=== PATIENT | female | born 1965 | race Caucasian/White ===

== ENCOUNTER → 2022-07-09 | Day surgery (SDC) | payer MEDICARE, MEDICAID ==
[~2022-07-09] VITALS: Ht 162.6 cm; Wt 52.6 kg
[~2022-07-09] MED LIST: ACET-2708 PO; BUPIVACAINE HCL 0.5% (5MG/ML) 50ML ONE; DEXAMETHASONE 4MG/ML 1ML VIAL ONE; FENTANYL CITRATE/PF 50MCG/ML 2ML VIAL ONE; GLYCOPYRROLATE 0.2 MG/ML 2ML VIAL ONE; HYDRALAZINE 20MG/ML VIAL IV NR; HYDROMORPHONE HCL/PF 2MG/ML CPJ IV PRN; KETOROLAC 30MG/ML VIAL ONE; MEPERIDINE HCL/PF 25MG/ML CPJ IV PRN; METF-414 PO; METOCLOPRAMIDE HCL 10MG/2ML VIAL ONE; MIDAZOLAM HCL 2 MG/2 ML VIAL ONE; NEOSTIGMINE METHYLSULFATE 1MG/ML 10 ML VIAL ONE; ONDANSETRON HCL 4MG/2ML INJ IV PRN; ONDANSETRON HCL 4MG/2ML INJ ONE; PRAV40TA58 PO; PROPOFOL 200MG/20ML VIAL IV ONE; ROCURONIUM BROMIDE 10MG/ML VIAL 5ML IV ONE; SKIN ADHESIVE 0.7 GM EA TOP ONE; SODIUM CHLORIDE 0.9% 1,000 ML IV SCH
[2022-07-09 11:05] VITALS: BP 150/95
== END | disposition home or self-care (01) ==
LOC: OR 06:06
PROVIDERS: ATTEND Surgery
DX: K80.10 Calculus of gallbladder with chronic cholecystitis without obstruction (principal); E78.00 Pure hypercholesterolemia, unspecified; E11.9 Type 2 diabetes mellitus without complications; K21.9 Gastro-esophageal reflux disease without esophagitis; F32.9 Major depressive disorder, single episode, unspecified; Z79.899 Other long term (current) drug therapy; Z98.890 Other specified postprocedural states; Z79.84 Long term (current) use of oral hypoglycemic drugs; Z20.822 Contact with and (suspected) exposure to COVID-19
CPT/HCPCS: 47562; 82962; 87426; 88304; C9803; J1100; J1170; J1885; J2250; J2405; J2704; J2710; J2765; J3010; J3490; J7030